=== PATIENT | female | born 1985 | race Two or more races ===

== ENCOUNTER 2020-04-26 01:17 | Emergency (ER) | payer SELFPAY ==
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
[2020-04-26] MEDS ORDERED: Acetaminophen 500 MG Tab PO ONE (02:36)
== END 2020-04-26 02:44 ==
LOC: MW.ED 01:17
DX: S00.83XA Contusion of other part of head, initial encounter (principal); F10.129 Alcohol abuse with intoxication, unspecified; W22.8XXA Striking against or struck by other objects, initial encounter
CPT/HCPCS: 70450; 70486; 72125; 99284; A9270